=== PATIENT | male | born 1985 | race Caucasian/White ===

== ENCOUNTER 2021-02-16 03:11 | Emergency (ER) | payer OTHER, SELFPAY ==
[2021-02-16 03:17] VITALS: BP 128/85; PULSE 104; RESP 14; TEMP 36.6; O2SAT 98; BMI 23.5
--- NOTE | 2021-02-16 03:40 | PC.NURSE ---
pt falls asleep, good respiratory effort and rate of 12/min and spo2 93%. pt does not wake to voice or light touch. girlfriend at bedside has to shake his arm, pt wakes.
--- NOTE | 2021-02-16 04:12 | ED_ITS ---
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 Patient had not slept in the last 2 days. During a break patient went outside to smoke a cigarette and then slept. He was difficult to arouse. Bystander called EMS. Patient sent in to the ED for further evaluation. He has no complaints. No chest pain or shortness breath no nausea no vomiting. Patient denies using recreational drugs. Patient contacted his . She is present. Will take patient home. He has no complaints. He denies drinking any alcohol. Related Data Allergies Allergy/AdvReac Type Severity Reaction Status Date / Time No Known Allergies Allergy Unverified 05/07/20 18:33 Review of Systems Review of Systems: No fever no chills no chest pain or shortness of breath no complaint all systems reviewed otherwise negative [facility] Past Medical History Attestation statement: The following information was validated with the patient. Social History Social History Advance Directives: No Advance Directives Information Provided: No Physical Exam Vital Signs: Vital Signs: Last Vital Signs Temp 97.8 F 02/16/21 03:17 Pulse 104 H 02/16/21 03:17 Resp 14 02/16/21 03:17 BP 128/85 02/16/21 03:17 Pulse Ox 98 02/16/21 03:17 Body Mass Index 23.5 Appearance: Alert. Oriented X3. No acute distress. Eyes: Pupils equal, round and reactive to light. ENT: Pharynx normal. Neck: Normal inspection. Neck supple. No lymph nodes noted. No crepitus CVS: Normal heart rate and rhythm. Pulses normal. Normal S1 and S2 Respiratory: No respiratory distress. Breath sounds normal. No Wheezing. No rales Abdomen: Soft and nontender. No rigidity. No distention. good BS x4 Skin: Skin warm and dry. Normal skin color. Normal skin turgor. Extremities: No lower extremity edema. Neurovascular intact to all extremities. No Lacerations. No Rash Neuro: Oriented X 3. No motor deficit. No sensory deficit. Moving all extermities. No slurred speech Medical Decision Making MDM Narrative Medical decision making narrative: patient well-appearing no acute distress. Denies any recreational drug use. Denies any alcohol. Patient is now awake alert. Family to take patient home. Will have patient follow-up with Work connection. In stable condition. Discharge Plan Discharge Clinical Impression: Sleep deprivation Patient Disposition: Home, Self-Care Instructions: Fatigue (ED) Referrals: Leonard Wood MD [Physician] - 2 days
--- NOTE | 2021-02-16 04:28 | PC.NURSE ---
pt awake and alert, ambulatory with steady gait. girlfriend at bedside and will give him ride home.
== END 2021-02-16 04:29 | disposition home or self-care (01) ==
PROVIDERS: Emergency Provider Emergency Medicine Emergency Medical Services
DX: Z72.820 Sleep deprivation (principal); F17.210 Nicotine dependence, cigarettes, uncomplicated
CPT/HCPCS: 99282; 99283

== ENCOUNTER → 2021-02-18 10:27 | Outpatient (BNVA) | payer OTHER, SELFPAY | PROVIDERS: Visit Provider Physician Assistant Medical | DX: Z02.79 Encounter for issue of other medical certificate (principal); R53.83 Other fatigue | CPT/HCPCS: 99202 ==

== ENCOUNTER 2021-05-13 13:04 | Outpatient (REF) | payer OTHER, SELFPAY | END 2021-05-13 13:05 | disposition home or self-care (01) | LOC: HO.LAB 13:04 | PROVIDERS: PCP Internal Medicine; Visit Provider Internal Medicine | DX: Z20.822 Contact with and (suspected) exposure to COVID-19 (principal) | CPT/HCPCS: C9803; U0003; U0005 ==

== ENCOUNTER 2021-05-19 13:05 | Outpatient (REF) | payer OTHER, SELFPAY | END 2021-05-19 13:06 | disposition home or self-care (01) | LOC: HO.LAB 13:05 | PROVIDERS: Visit Provider Internal Medicine | DX: Z20.822 Contact with and (suspected) exposure to COVID-19 (principal) | CPT/HCPCS: U0003; U0005 ==

== ENCOUNTER 2021-05-31 10:34 | Outpatient (REF) | payer OTHER, SELFPAY | END 2021-05-31 10:35 | disposition home or self-care (01) | LOC: HO.LAB 10:34 | PROVIDERS: PCP Internal Medicine; Visit Provider Internal Medicine | DX: Z20.822 Contact with and (suspected) exposure to COVID-19 (principal) | CPT/HCPCS: C9803; U0003; U0005 ==

== ENCOUNTER 2021-07-29 14:11 | Outpatient (RCR) | payer OTHER, SELFPAY | END 2021-08-18 13:20 | disposition home or self-care (01) | LOC: HO.WCC 14:11 | PROVIDERS: PCP Internal Medicine; Visit Provider Surgery | DX: T81.31XA Disruption of external operation (surgical) wound, not elsewhere classified, initial encounter (principal); L97.519 Non-pressure chronic ulcer of other part of right foot with unspecified severity; W55.03XA Scratched by cat, initial encounter; F12.90 Cannabis use, unspecified, uncomplicated; L53.9 Erythematous condition, unspecified; Z79.2 Long term (current) use of antibiotics | CPT/HCPCS: 97597; 99213 ==

== ENCOUNTER 2021-09-16 14:18 | Outpatient (REF) | payer MEDICAID, SELFPAY ==
[2021-09-16 14:39] LABS: Binax Internal Control QC Valid; Binax Now Covid-19 Ag Negative (Negative)
== END 2021-09-16 14:19 | disposition home or self-care (01) ==
LOC: HO.LAB 14:18
PROVIDERS: Visit Provider Internal Medicine
DX: Z20.822 Contact with and (suspected) exposure to COVID-19 (principal)
CPT/HCPCS: C9803

== ENCOUNTER 2021-10-17 18:13 | Emergency (ER) | payer OTHER, MEDICAID, SELFPAY ==
[2021-10-17 18:55] VITALS: BP 117/73; PULSE 79; RESP 16; TEMP 37.1; O2SAT 99; BMI 28.1
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
== END 2021-10-17 20:08 | disposition home or self-care (01) ==
PROVIDERS: Emergency Provider Internal Medicine; PCP Internal Medicine
DX: S16.1XXA Strain of muscle, fascia and tendon at neck level, initial encounter (principal); M25.512 Pain in left shoulder; M54.2 Cervicalgia; V43.52XA Car driver injured in collision with other type car in traffic accident, initial encounter; Y93.9 Activity, unspecified; Y92.410 Unspecified street and highway as the place of occurrence of the external cause; Y99.9 Unspecified external cause status; Z79.899 Other long term (current) drug therapy
CPT/HCPCS: 99284

== ENCOUNTER 2022-02-28 20:30 | Emergency (ER) | payer MEDICAID, SELFPAY ==
--- NOTE | ~2022-02-28 | CT_ITS ---
EXAMINATION: CT ABDOMEN AND PELVIS WITHOUT CONTRAST CLINICAL INFORMATION: Right flank pain, question kidney stones COMPARISON: None TECHNIQUE: Multidetector volumetric imaging was performed from the superior aspect of the liver through the pubic symphysis. Sagittal and coronal reformatted images were obtained on the technologist's workstation. This CT examination was performed using dose optimization techniques as appropriate, variously including the following: *Automated exposure control *Adjustment of mA and/or kV according to patient size (this includes techniques or standardized protocols for targeted exams where dose is matched to indication/reason for exam; i.e. extremities or head) *Use of iterative reconstruction technique DLP: 602 mGy-cm FINDINGS: LUNG BASES: The visualized lung bases are unremarkable. LIVER, GALLBLADDER, AND BILIARY TREE: The liver is normal in size, shape, and attenuation. No focal hepatic lesion or biliary ductal dilatation is present. The gallbladder appears contracted and is not adequately evaluated. PANCREAS: Unremarkable. SPLEEN: Unremarkable. ADRENAL GLANDS: Unremarkable. KIDNEYS AND URETERS: The kidneys are normal in size, shape, and attenuation. No hydronephrosis, hydroureter, or calculi seen. No perinephric stranding. BLADDER: There is diffuse mural prominence which may be due to underdistention. GASTROINTESTINAL TRACT: No evidence of bowel obstruction or significant wall thickening. The appendix is unremarkable. No free fluid or free air is seen. ABDOMINAL WALL: No significant hernia is appreciated. LYMPH NODES: No lymphadenopathy is seen, though assessment is limited in the absence of intravenous contrast. VASCULAR: Grossly unremarkable on this noncontrast exam. PELVIC VISCERA: Unremarkable. OSSEOUS STRUCTURES: Endplate osteophytes are noted in the lower lumbar spine. CT/CT abdomen pelvis wo con IMPRESSION: No acute findings identified in the abdomen/pelvis. No hydronephrosis or obstructing calculus.
[2022-02-28 22:20] VITALS: BP 131/77; PULSE 91; RESP 18; TEMP 36.8; O2SAT 94; BMI 29.0
[2022-02-28 22:42] LABS: MANUAL DIFF FLAG NO
[2022-02-28 22:43] LABS: Basophils Absolute Auto 0.1 X10*3/uL (0.0-0.2); Basophils Percent Auto 0.8 % (0-2); Eosinophils Absolute Auto 0.9 X10*3/uL (0.0-0.4); Hematocrit 41.2 % (42.0-52.0); Hemoglobin 13.9 g/dl (14.0-18.0); Imm Gran Abs Auto 0.04 X10*3/uL (0.00-0.03); Imm Gran Pct Auto 0.3 % (0.0-0.4); Lymphocytes Absolute Auto 2.1 X10*3/uL (1.2-4.9); Lymphocytes Percent Auto 15.8 % (20-40); Mean Corpuscular HGB Conc 33.7 g/dl (31.0-36.0); Mean Corpuscular Hemoglobin 30.5 pg (27.0-33.0); Mean Corpuscular Volume 90.4 fL (80.0-98.0); Mean Platelet Volume 9.7 fL (9.4-12.4); Monocytes Absolute Auto 1.1 X10*3/uL (0.1-1.2); Monocytes Percent Auto 8.7 % (2-11); Neutrophils Absolute Auto 8.9 x10*3/uL (2.0-8.3); Neutrophils Percent Auto 67.4 % (45-73); Platelet Count 221 X10*3/uL (160-400); Red Blood Count 4.56 X10*6/uL (4.60-5.80); Red Cell Distribution Width 13.5 % (11.0-16.0); White Blood Count 13.1 X10*3/uL (4.8-10.8)
[2022-02-28 23:00] LABS: Alanine Aminotransferase 12 U/L (0-40); Albumin Level 4.2 g/dL (3.5-5.0); Alkaline Phosphatase 100 U/L (39-117); Anion Gap 9 (12-20); Aspartate Amino Transferase 17 U/L (5-37); Bilirubin Total 0.3 mg/dL (0.0-1.0); Blood Urea Nitrogen 21 mg/dL (9-16); Calcium 9.1 mg/dL (8.4-10.2); Carbon Dioxide 31 mmol/L (22-29); Chloride 102 mmol/L (96-108); Creatinine Clr Calc Pharmacy 121.8; Estimated Glomerular Filt Rate > 60; Glucose Random 96 mg/dL (60-115); Potassium 4.4 mmol/L (3.3-5.1); Sodium 138 mmol/L (135-145); Total Protein 6.9 g/dL (6.5-8.0)
[2022-03-01] VITALS: BP 132/70; PULSE 87; RESP 14; TEMP 36.8; O2SAT 95
[2022-03-01 00:41] LABS: C Reactive Protein 1.62 mg/dL (< or = 0.50); Lipase 15 U/L (8-78); Magnesium 1.8 mg/dL (1.6-2.6)
[2022-03-01] MEDS: Ketorolac Tromethamine 60 MG/2 ML VIAL IM (00:52)
[2022-03-01] MEDS: Ondansetron ODT 4 MG TAB.RAPDIS TRANSLINGU (00:52)
--- NOTE | 2022-03-01 00:56 | ED_ITS ---
HPI - Abdominal Pain General Chief Complaint: Abdominal Pain Stated Complaint: side/abd pain Time Seen by Provider: 03/01/22 00:22 Source: patient and family Mode of arrival: ambulatory Limitations: language barrier ( [place]an-speaking) History of Present Illness HPI narrative: 36-year-old male who denies any medical history or surgical history to the abdomen presenting to the ED with complaints of right flank pain since this morning with associated nausea and 1 episode of vomiting. Also reports possible constipation. Reports that he had small balls of poop yesterday. He reports that the right flank pain started this morning while he was eating eggs and he went to work and lifted something heavy and since then it has been worse. He denies any fevers, chills, dizziness, headaches, neck pain / stiffness, trouble swallowing breathing, chest pain or shortness of breath, dyspnea on exertion, orthopnea, palpitations, paresthesias, radiation of the abdominal pain, dysuria, hematuria, abnormal penile discharge, black or bloody stools, rashes, recent falls or trauma , recent antibiotic uses, others with similar symptoms, possible bad food exposure or any other symptoms complaints or concerns at this time. MD elicited complaint: abdominal pain and flank pain Pertinent past history: none Onset (ago): hour(s) ( since this morning) Pain Consistency: constant Location: R flank Severity: moderate Quality: stabbing, aching and sharp Radiation: none Migration to: no migration Exacerbating factors: nothing Relieving factors: nothing Associated symptoms: nausea, vomiting and constipation Related Data Previous Rx's Medication Instructions Recorded acetaminophen 500 mg tablet 500 mg PO Q6H PRN pain or fever 10/17/21 (Tylenol Extra Strength) #20 tabs cyclobenzaprine 5 mg tablet 5 mg PO Q8H PRN pain (scale score 10/17/21 7-10) 5 days #14 tabs lidocaine 5 % topical patch 1 patch topical DAILY PRN pain #30 10/17/21 (Lidoderm) ea naproxen 500 mg tablet 500 mg PO BID PRN pain 10 days #20 10/17/21 tabs cyclobenzaprine 10 mg tablet 10 mg PO Q8H PRN Muscle spasm #14 03/01/22 tabs naproxen 500 mg tablet 500 mg PO BID PRN pain #14 tabs 03/01/22 ondansetron 4 mg disintegrating 4 mg PO Q6H nausea and vomiting 03/01/22 tablet #14 tabs Allergies Allergy/AdvReac Type Severity Reaction Status Date / Time No Known Allergies Allergy Verified 02/28/22 22:20 Review of Systems Review of Systems Constitutional : No Fever, No Chills, No Night Sweats, No Fatigue, No Malaise Cardiovascular : No Chest Pain, No SOB Respiratory : No Cough, No Sputum, No Wheezing, No Dyspnea Gastrointestinal : + Nausea, + Vomiting, + abdominal Pain, + constipation, No Hematochezia, No Melena, No Diarrhea Genitourinary : No irregular bleeding, No Dysuria, No Urinary Frequency, No Hematuria,No Urinary Incontinence, No Urgency, No Flank Pain Musculoskeletal : No joint pain, No Myalgias, No Joint Swelling Skin : No Skin Lesions, No rash Neuro : No Weakness, No Numbness, No Paresthesias, No Loss of Consciousness, No Dizziness, No Headache Heme/Lymph: No Lymphadenopathy Endocrine : No Temperature Intolerance Yes all other systems are reviewed and are negative [facility] Past Medical History Attestation statement: The following information was validated with the patient. Source: old records reviewed, obtained from family and nursing notes reviewed Social History Social History Alcohol intake: never Patient Tobacco Use Status: Current everyday Tobacco user Use of substances other than those prescribed or required for medical reasons: No Advance Directives: No Physical Exam ED Vital Signs: Vital Signs - 24 hr 02/28/22 22:20 03/01/22 00:00 Temperature 98.2 F 98.2 F Pulse Rate 91 87 Respiratory Rate 18 14 Blood Pressure 131/77 132/70 Pulse Oximetry 94 95 Oxygen Delivery Method Room Air Room Air BMI result Body Mass Index 29.0 Vital signs have been reviewed and all within normal limits Appearance: Alert. Oriented X3. No acute distress. Head: Normal external exam. Normocephalic. Eyes: PERRLA. EOMI. Conjunctiva and sclera normal. Eyelids normal. ENT: Pharynx normal. Uvula midline. Moist mucous membranes. No trismus noted. No drooling noted. No muffled voice noted. Neck: Normal inspection. Neck supple. FROM. No adenopathy. No meningeal signs. CVS: Normal heart rate and rhythm. Heart sound normal. No murmurs noted. Pulses normal throughout. Respiratory: No respiratory distress. Painless inspiration. Breath sounds normal. No wheezes/rales/rhonchi noted. Chest nontender. No accessory muscle usage noted or decreased air movement noted. Abdomen: Soft and moderate tenderness to the right flank with guarding. Nondistended. No rigidity. Bowel sounds normal in all 4 quadrants. No distention noted. No organomegaly noted. No visible injury noted. No rebound tenderness. Negative Rovsing sign. Negative obturator's sign. Negative psoas sign. Negative King sign. Back: + Right sided CVA tenderness. No left sided CVAT noted. Full range of motion noted. Skin: Skin warm and dry. Normal skin color. Normal skin turgor. No rashes/lesions/lacerations noted. Extremities: Extremities exhibit normal range of motion. Extremities nontender. Neuro: Oriented X 3. No motor deficit. No sensory deficit. Reflexes normal. Normal steady gait. CN's II-XII intact bilaterally? Course Course Course Narrative: 20:45pm - 36-year-old male who denies any medical history or surgical history to the abdomen presenting to the ED with complaints of right flank pain since this morning with associated nausea and 1 episode of vomiting. Also reports possible constipation. Reports that he had small balls of poop yesterday. He reports that the right flank pain started this morning while he was eating eggs and he went to work and lifted something heavy and since then it has been worse. labs were obtained while the patient was in triage /waiting room in patient with an elevated white blood cell count of 13,000. Mild anemia. Carbon dioxide 31. Anion gap 9. BUN 21. CRP 1.64. Otherwise all other labs are within normal limits. Plan: Will obtain a UA and a CT scan abdomen pelvis without IV contrast provide 60 mg of IM Toradol and 4 mg of p.o. Zofran and re-evaluate. Reevaluation(s) Reevaluation #1: Labs reviewed patient with mildly leukocytosis at 13,000. Mild anemia. Carbon dioxide 31. Anion gap 9. BUN 21. CRP 1.62. Otherwise all other labs are within normal limits. UA within normal limits no evidence of UTI. CT scan abdomen pelvis revealed chronic changes no acute processes. Not consistent with appendicitis. Not consistent with kidney stones. Patient most likely muscular skeletal pain. Will DC home with symptomatic treatment instructions return if any new or worsening symptoms follow up with primary care provider. Patient with at bedside understand agree this plan. Time: 02:39 MDM - Abdominal Pain Medical Records Attestation: I reviewed the patient's medical records. Lab Data Attestation: I reviewed the patient's lab results. Result diagrams: 02/28/22 22:35 02/28/22 22:35 Labs: Lab Results 02/28/22 02/28/22 02/28/22 Range/Units 22:35 22:35 22:35 WBC 13.1 H (4.8-10.8) X10*3/uL RBC 4.56 L (4.60-5.80) X10*6/uL Hgb 13.9 L (14.0-18.0) g/dl Hct 41.2 L (42.0-52.0) % MCV 90.4 (80.0-98.0) fL MCH 30.5 (27.0-33.0) pg MCHC 33.7 (31.0-36.0) g/dl RDW 13.5 (11.0-16.0) % Plt Count 221 (160-400) X10*3/uL MPV 9.7 (9.4-12.4) fL Immature Gran % (Auto) 0.3 (0.0-0.4) % Neut % (Auto) 67.4 (45-73) % Lymph % (Auto) 15.8 L (20-40) % Rogers % (Auto) 8.7 (2-11) % Eos % (Auto) 7.0 H (0-4) % Baso % (Auto) 0.8 (0-2) % Lymph # (Auto) 2.1 (1.2-4.9) X10*3/uL Rogers # (Auto) 1.1 (0.1-1.2) X10*3/uL Eos # (Auto) 0.9 H (0.0-0.4) X10*3/uL Baso # (Auto) 0.1 (0.0-0.2) X10*3/uL Abs Immat Gran (auto) 0.04 H (0.00-0.03) X10*3/uL Absolute Neuts (auto) 8.9 H (2.0-8.3) x10*3/uL Absolute Nucleated RBC 0.000 (0.0-0.012) X10*3/uL Nucleated RBC % (auto) 0.0 (0.0-0.2) /100WBC ESR 6 (0-15) MM/HR Sodium 138 (135-145) mmol/L Potassium 4.4 (3.3-5.1) mmol/L Chloride 102 (96-108) mmol/L Carbon Dioxide 31 H (22-29) mmol/L Anion Gap 9 L (12-20) BUN 21 H (9-16) mg/dL Creatinine 0.86 (0.5-1.4) mg/dL Estim Creat Clear Calc 121.8 Estimated GFR > 60 Random Glucose 96 (60-115) mg/dL Calcium 9.1 (8.4-10.2) mg/dL Magnesium 1.8 (1.6-2.6) mg/dL Total Bilirubin 0.3 (0.0-1.0) mg/dL AST 17 (5-37) U/L ALT 12 (0-40) U/L Alkaline Phosphatase 100 (39-117) U/L C-Reactive Protein 1.62 H (< or = 0.50) mg/dL Total Protein 6.9 (6.5-8.0) g/dL Albumin 4.2 (3.5-5.0) g/dL Lipase 15 (8-78) U/L Urine Color Urine Appearance Urine pH (5.0-8.0) Ur Specific Fossil (1.005-1.025) Urine Protein (NEG-TRACE) MG/DL Urine Glucose (UA) (NEG) MG/DL Urine Ketones (NEG) MG/DL Urine Blood (NEG) Urine Nitrite (NEG) Ur Leukocyte Esterase (NEG) 03/01/22 Range/Units 01:18 WBC (4.8-10.8) X10*3/uL RBC (4.60-5.80) X10*6/uL Hgb (14.0-18.0) g/dl Hct (42.0-52.0) % MCV (80.0-98.0) fL MCH (27.0-33.0) pg MCHC (31.0-36.0) g/dl RDW (11.0-16.0) % Plt Count (160-400) X10*3/uL MPV (9.4-12.4) fL Immature Gran % (Auto) (0.0-0.4) % Neut % (Auto) (45-73) % Lymph % (Auto) (20-40) % Rogers % (Auto) (2-11) % Eos % (Auto) (0-4) % Baso % (Auto) (0-2) % Lymph # (Auto) (1.2-4.9) X10*3/uL Rogers # (Auto) (0.1-1.2) X10*3/uL Eos # (Auto) (0.0-0.4) X10*3/uL Baso # (Auto) (0.0-0.2) X10*3/uL Abs Immat Gran (auto) (0.00-0.03) X10*3/uL Absolute Neuts (auto) (2.0-8.3) x10*3/uL Absolute Nucleated RBC (0.0-0.012) X10*3/uL Nucleated RBC % (auto) (0.0-0.2) /100WBC ESR (0-15) MM/HR Sodium (135-145) mmol/L Potassium (3.3-5.1) mmol/L Chloride (96-108) mmol/L Carbon Dioxide (22-29) mmol/L Anion Gap (12-20) BUN (9-16) mg/dL Creatinine (0.5-1.4) mg/dL Estim Creat Clear Calc Estimated GFR Random Glucose (60-115) mg/dL Calcium (8.4-10.2) mg/dL Magnesium (1.6-2.6) mg/dL Total Bilirubin (0.0-1.0) mg/dL AST (5-37) U/L ALT (0-40) U/L Alkaline Phosphatase (39-117) U/L C-Reactive Protein (< or = 0.50) mg/dL Total Protein (6.5-8.0) g/dL Albumin (3.5-5.0) g/dL Lipase (8-78) U/L Urine Color YELLOW Urine Appearance CLEAR Urine pH 6.5 (5.0-8.0) Ur Specific Fossil 1.020 (1.005-1.025) Urine Protein NEG (NEG-TRACE) MG/DL Urine Glucose (UA) NEG (NEG) MG/DL Urine Ketones NEG (NEG) MG/DL Urine Blood NEG (NEG) Urine Nitrite NEG (NEG) Ur Leukocyte Esterase NEG (NEG) Imaging Data CT scan abdomen pelvis without IV contrast: Attestation: I personally reviewed and interpreted this imaging study as follows: Radiologist's impression: FINDINGS: LUNG BASES: The visualized lung bases are unremarkable.? LIVER, GALLBLADDER, AND BILIARY TREE: The liver is normal in size, shape, and attenuation. No focal hepatic lesion or biliary ductal dilatation is present. The gallbladder appears contracted and is not adequately evaluated.? PANCREAS: Unremarkable.? SPLEEN: Unremarkable.? ADRENAL GLANDS: Unremarkable.? KIDNEYS AND URETERS: The kidneys are normal in size, shape, and attenuation. No hydronephrosis, hydroureter, or calculi seen. No perinephric stranding. BLADDER: There is diffuse mural prominence which may be due to underdistention. GASTROINTESTINAL TRACT: No evidence of bowel obstruction or significant wall thickening. The appendix is unremarkable. No free fluid or free air is seen. ABDOMINAL WALL: No significant hernia is appreciated.? LYMPH NODES: No lymphadenopathy is seen, though assessment is limited in the absence of intravenous contrast. VASCULAR: Grossly unremarkable on this noncontrast exam. PELVIC VISCERA: Unremarkable.? OSSEOUS STRUCTURES: Endplate osteophytes are noted in the lower lumbar spine.? CT/CT abdomen pelvis wo con IMPRESSION: No acute findings identified in the abdomen/pelvis. No hydronephrosis or obstructing calculus. Discharge Plan Discharge Clinical Impression: Pain on movement of skeletal muscle, Acute abdominal pain in right flank, Nausea & vomiting Patient Disposition: Home, Self-Care Instructions: Musculoskeletal Pain (ED) Prescriptions: New naproxen 500 mg tablet 500 mg PO BID PRN (Reason: pain) Qty: 14 0RF cyclobenzaprine 10 mg tablet 10 mg PO Q8H PRN (Reason: Muscle spasm) Qty: 14 0RF ondansetron 4 mg tablet,disintegrating 4 mg PO Q6H Qty: 14 0RF No Action acetaminophen [Tylenol Extra Strength] 500 mg tablet 500 mg PO Q6H PRN (Reason: pain or fever) Qty: 20 0RF lidocaine [Lidoderm] 5 % adhesive patch,medicated 1 patch topical DAILY MDD remove after 12 hours PRN (Reason: pain) Qty: 30 0RF Rx Instructions: leave on most painful area for up to 12 hrs naproxen 500 mg tablet 500 mg PO BID PRN (Reason: pain) 10 Days Qty: 20 0RF cyclobenzaprine 5 mg tablet 5 mg PO Q8H PRN (Reason: pain (scale score 7-10)) 5 Days Qty: 14 0RF Referrals: Physician,Unknown J [Primary Care Provider] - 2 days (your pcp) Stand Alone Forms: Work/School Release Print Language: [place]an
[2022-03-01 01:03] LABS: Erythrocyte Sedimentation Rate 6 MM/HR (0-15)
[2022-03-01 01:26] LABS: Appearance Urine CLEAR; Color Urine YELLOW; Glucose Urine UA NEG (NEG); Leukocyte Esterase Urine NEG (NEG); Nitrite Urine NEG (NEG); PH 6.5 (5.0-8.0); Urine Blood NEG (NEG); Urine Ketones NEG (NEG); Urine Protein NEG (NEG-TRACE)
== END 2022-03-01 05:21 | disposition home or self-care (01) ==
PROVIDERS: Physician Assistant Medical; Emergency Provider Emergency Medicine Emergency Medical Services
DX: R10.9 Unspecified abdominal pain (principal); R11.2 Nausea with vomiting, unspecified; K59.00 Constipation, unspecified; F17.200 Nicotine dependence, unspecified, uncomplicated; Z79.899 Other long term (current) drug therapy; Z71.6 Tobacco abuse counseling
CPT/HCPCS: 36415; 74176; 80053; 81003; 83690; 83735; 85025; 85652; 86140; 96372; 99284; J1885

== ENCOUNTER 2022-05-23 18:06 | Emergency (ER) | payer MEDICAID, SELFPAY | END 2022-05-23 19:02 | disposition left against medical advice (07) | PROVIDERS: Emergency Provider Emergency Medicine; PCP Internal Medicine | DX: M79.89 Other specified soft tissue disorders (principal) ==

== ENCOUNTER 2022-10-28 15:03 | Emergency (ER) | payer MEDICAID, SELFPAY ==
--- NOTE | 2022-10-28 15:08 | ED.GENADULT ---
HPI - General Adult General Chief complaint: Overdose Stated complaint: Overdose per EMS Time Seen by Provider: 10/28/22 15:05 Source: EMS Mode of arrival: EMS Limitations: other (Overdose) History of Present Illness HPI narrative: 37-year-old male with no major medical problems presents after an accidental overdose on opioids. Patient was noted to be sleeping throughout the day in his room. His family came and noticed he was unresponsive with agonal respirations. Both EMS and police were contacted. Prior to EMS arrival, patient received 2 doses of intranasal Narcan with some response. Fire department also arrived giving a 3rd dose of intranasal Narcan with good response. Since then, patient has been somewhat combative, uncooperative. Vital signs prior to arrival appear to be mildly hypotensive, good oxygen saturation in no focal deficits. There is no evidence of trauma. Patient is not a good historian is unable to provide history at this time. Related Data Previous Rx's Medication Instructions Recorded acetaminophen 500 mg tablet 500 mg PO Q6H PRN pain or fever 10/17/21 (Tylenol Extra Strength) #20 tabs cyclobenzaprine 5 mg tablet 5 mg PO Q8H PRN pain (scale score 10/17/21 7-10) 5 days #14 tabs lidocaine 5 % topical patch 1 patch topical DAILY PRN pain #30 10/17/21 (Lidoderm) ea naproxen 500 mg tablet 500 mg PO BID PRN pain 10 days #20 10/17/21 tabs cyclobenzaprine 10 mg tablet 10 mg PO Q8H PRN Muscle spasm #14 03/01/22 tabs naproxen 500 mg tablet 500 mg PO BID PRN pain #14 tabs 03/01/22 ondansetron 4 mg disintegrating 4 mg PO Q6H nausea and vomiting 03/01/22 tablet #14 tabs Allergies Allergy/AdvReac Type Severity Reaction Status Date / Time No Known Allergies Allergy Verified 02/28/22 22:20 [facility] Social History Social History Alcohol intake: never Patient Tobacco Use Status: Current everyday Tobacco user Physical Exam ED Vital Signs: Vital Signs - 24 hr 10/28/22 15:22 Temperature 97.3 F Pulse Rate 116 H Respiratory Rate 33 H Pulse Oximetry 96 Oxygen Delivery Method Room Air BMI result Body Mass Index 29.7 GEN: Well developed, no acute distress, alert HEENT: Normocephalic, atraumatic, normal external ears, nose appears normal, no oropharyngeal edema or exudates Eyes: Normal to appearance Neck: Supple, no lymphadenopathy Respiratory: Talks in complete sentences, no respiratory distress, clear to auscultation bilaterally Cardiovascular: Regular rate and rhythm, no murmurs rubs or gallops Abdomen: Soft, nontender, nondistended, no guarding, no rebound Back: No CVA tenderness Extremities: No clubbing cyanosis or edema Neurologic: No focal neurologic deficits, cranial nerves 2-12 intact, strength is 5/5 bilaterally, gait normal Skin: No rash Psych: No SI HI Course Course Course Narrative: 37-year-old male presents with accidental overdose. There is no SI or HI. Patient responded to Narcan. Currently somnolent but arousable with verbal command. He has no focal deficits. There is no evidence trauma. Will observe patient for at least 2 hours pending an appropriate improvement in his condition. Reevaluation(s) Reevaluation #1: Patient has stable yet somnolent. Patient will be observed for a minimum of 2 hours. The oncoming doctor will assume care at this time. Disposition pending clinical sobriety. Time: 16:47 Medications Administered Discontinued Medications Generic Name Dose Route Start Last Admin Trade Name Paresh PRN Reason Stop Dose Admin Naloxone HCl 4 mg 10/28/22 15:14 10/28/22 15:49 Naloxone Hcl Nasal Take Home 4 Mg [place] NOSTRILALT 10/28/22 15:15 4 mg ONCE ONE Administration Medical Decision Making Medical Decision Making [facility] Narrative: 37-year-old male abdominal speaking presents with an accidental overdose on opioids. Patient denies SI or HI. Patient will be observed for improvement in his mental and medical condition. Differential Diagnosis Differential Diagnoses: The differential diagnosis associated with the presentation includes (Accidental overdose, depression, anxiety, adjustment reaction, polysubstance abuse) Admission/Observation Consideration of admission/observation: Escalation of care including admission/observation considered Prescription Management I considered prescription management with: Other (Anxiety medications) Social Determinants Patient?s care significantly limited by Social Determinants of Health including: Other Social Determinant of Health (Substance abuse) Discharge Plan Discharge Clinical Impression: Accidental overdose, Active substance abuse Patient Disposition: Still a Patient Instructions: Polysubstance Abuse (ED), Adult Overdose (ED) Prescriptions: No Action acetaminophen [Tylenol Extra Strength] 500 mg tablet 500 mg PO Q6H PRN (Reason: pain or fever) Qty: 20 0RF lidocaine [Lidoderm] 5 % adhesive patch,medicated 1 patch topical DAILY MDD remove after 12 hours PRN (Reason: pain) Qty: 30 0RF Rx Instructions: leave on most painful area for up to 12 hrs naproxen 500 mg tablet 500 mg PO BID PRN (Reason: pain) 10 Days Qty: 20 0RF cyclobenzaprine 5 mg tablet 5 mg PO Q8H PRN (Reason: pain (scale score 7-10)) 5 Days Qty: 14 0RF naproxen 500 mg tablet 500 mg PO BID PRN (Reason: pain) Qty: 14 0RF cyclobenzaprine 10 mg tablet 10 mg PO Q8H PRN (Reason: Muscle spasm) Qty: 14 0RF ondansetron 4 mg tablet,disintegrating 4 mg PO Q6H Qty: 14 0RF Referrals: [facility] [Provider Group]
[2022-10-28 15:22] VITALS: PULSE 116; RESP 33; TEMP 36.3; O2SAT 96; BMI 29.7
[2022-10-28] MEDS: Naloxone HCl Nasal TAKE HOME 4 MG SPRAY NOSTRILALT (15:49)
--- NOTE | 2022-10-28 18:30 | PC.NURSE ---
Patient up and awake. Girlfriend in at bedside, patient eating.
[2022-10-28 18:33] VITALS: BP 97/52; PULSE 94; RESP 13; TEMP 37; O2SAT 97
[2022-10-28 20:04] VITALS: BP 110/66; PULSE 84; RESP 12; TEMP 37.2; O2SAT 96
--- NOTE | 2022-10-28 20:45 | MHC.RECOVSUP ---
? Reason for consult:OPI o? Current location:ED06? o? Identified substance use concern:? -? Overdose -? Support ? Intervention: o? Community resources provided o? Harm reduction discussion ? Plan: ? Additional information:RC met with pt and discussed ATS, pt declined any services, RC provided pt with recovery resources to [facility] and [facility].
== END 2022-10-28 20:44 | disposition home or self-care (01) ==
PROVIDERS: Emergency Provider Emergency Medicine; PCP Internal Medicine
DX: T40.2X1A Poisoning by other opioids, accidental (unintentional), initial encounter (principal); Y92.9 Unspecified place or not applicable; F19.10 Other psychoactive substance abuse, uncomplicated
CPT/HCPCS: 99284

== ENCOUNTER 2023-02-20 14:21 | Outpatient (REF) | payer MEDICAID, SELFPAY | END 2023-02-20 14:22 | disposition home or self-care (01) | LOC: HO.HHCX 14:21 | PROVIDERS: Visit Provider Registered Nurse | DX: M79.671 Pain in right foot (principal) | CPT/HCPCS: 73630 ==

== ENCOUNTER 2023-04-12 12:35 | Outpatient (REF) | payer MEDICAID, SELFPAY ==
[2023-04-12 13:00] LABS: MANUAL DIFF FLAG NO
[2023-04-12 13:09] LABS: Basophils Absolute Auto 0.1 X10*3/uL (0.0-0.2); Basophils Percent Auto 0.8 % (0-2); Eosinophils Absolute Auto 0.6 X10*3/uL (0.0-0.4); Eosinophils Percent Auto 8.4 % (0-4); Hematocrit 42.5 % (42.0-52.0); Hemoglobin 14.5 g/dl (14.0-18.0); Imm Gran Abs Auto 0.02 X10*3/uL (0.00-0.03); Imm Gran Pct Auto 0.3 % (0.0-0.4); Lymphocytes Absolute Auto 1.8 X10*3/uL (1.2-4.9); Mean Corpuscular HGB Conc 34.1 g/dl (31.0-36.0); Mean Corpuscular Hemoglobin 31.6 pg (27.0-33.0); Mean Corpuscular Volume 92.6 fL (80.0-98.0); Mean Platelet Volume 9.7 fL (9.4-12.4); Monocytes Absolute Auto 0.7 X10*3/uL (0.1-1.2); Monocytes Percent Auto 8.6 % (2-11); Neutrophils Absolute Auto 4.5 x10*3/uL (2.0-8.3); Neutrophils Percent Auto 58.9 % (45-73); Platelet Count 207 X10*3/uL (160-400); Red Blood Count 4.59 X10*6/uL (4.60-5.80); Red Cell Distribution Width 12.9 % (11.0-16.0); White Blood Count 7.7 X10*3/uL (4.8-10.8)
[2023-04-12 13:19] LABS: D Dimer High Sensitivity < 150 NG/ML
[2023-04-12 13:31] LABS: Anion Gap 12 (12-20); Blood Urea Nitrogen 14 mg/dL (9-16); Calcium 9.2 mg/dL (8.4-10.2); Carbon Dioxide 28 mmol/L (22-29); Chloride 105 mmol/L (96-108); Estimated Glomerular Filt Rate > 60; Glucose Random 127 mg/dL (60-115); Potassium 4.9 mmol/L (3.3-5.1); Sodium 140 mmol/L (135-145)
[2023-04-12 13:40] LABS: TSH reflex Free T4 0.62 uIU/mL (0.32-4.0)
== END 2023-04-12 12:36 | disposition home or self-care (01) ==
LOC: HO.LAB 12:35
PROVIDERS: PCP Internal Medicine; Visit Provider Internal Medicine
DX: R00.2 Palpitations (principal); R94.31 Abnormal electrocardiogram [ECG] [EKG]
CPT/HCPCS: 36415; 80048; 84443; 85025; 85379

== ENCOUNTER 2023-04-20 16:44 | Outpatient (REF) | payer MEDICAID, SELFPAY ==
[2023-04-25 21:37] LABS: Lyme Abs Screen <0.90 index
== END 2023-04-20 16:45 | disposition home or self-care (01) ==
LOC: HO.HHCL 16:44
PROVIDERS: Visit Provider Emergency Medicine
DX: M25.531 Pain in right wrist (principal); M79.641 Pain in right hand
CPT/HCPCS: 36415; 84550; 86617; 86618

== ENCOUNTER 2023-06-29 09:23 | Outpatient (REF) | payer MEDICAID, SELFPAY ==
--- NOTE | 2023-06-29 09:25 | EMG_ITS ---
Right median and ulnar motor and sensory studies were performed. Right radial sensory study was performed. Right median and lateral antecubital brachial sensory studies were performed and paraspinal muscles were tested with a needle. IMPRESSION: Mild to moderate right median neuropathy across carpal tunnel. MD JUNIE Dominguez/RENATA / [phone]
== END 2023-06-29 09:24 | disposition home or self-care (01) ==
LOC: HO.NEURO 09:23
PROVIDERS: PCP Internal Medicine; Visit Provider Emergency Medicine
DX: M25.531 Pain in right wrist (principal); M79.641 Pain in right hand
CPT/HCPCS: 95886; 95910

== ENCOUNTER 2023-07-05 17:36 | Outpatient (REF) | payer MEDICAID, SELFPAY ==
[2023-07-10 08:48] LABS: Alphahydroxymidazolam,GCMS Ur NEGATIVE; Alphahydroxytriazolam, GCMS Ur NEGATIVE; Aminoclonazepam, GCMS Urine NEGATIVE; Flurazepam Metabolite,GCMS Ur NEGATIVE; Temazepam, GCMS Urine NEGATIVE
[2023-07-10 08:49] LABS: Lorazepam GCMS Urine NEGATIVE; Nordiazepam, GCMS Urine NEGATIVE; Oxazepam, GCMS Urine NEGATIVE
== END 2023-07-05 17:37 | disposition home or self-care (01) ==
LOC: HO.HHCLNP 17:36
PROVIDERS: Visit Provider Family Medicine
DX: F11.20 Opioid dependence, uncomplicated (principal)
CPT/HCPCS: 80346

== ENCOUNTER 2023-07-11 11:03 | Outpatient (AMB) | payer MEDICAID, SELFPAY ==
[2023-07-11 11:13] VITALS: BMI 29.8
--- NOTE | 2023-07-11 11:13 | A.OFFVIS_ITS ---
Intake Vital Signs 07/11/23 11:13 Height 5 ft 7 in Weight 190 lb BMI 29.8 Handedness Right Intake Visit Reasons: New Pt - Rt hand/wrist pain Intake Note: is a 37 year old right hand dominant male who presents today as a new patient for a evaluation of his right wrist pain. Patient reports having pain for many years with no treatment. Having off and on numbness and tingling on the thumb, pointer finger and middle finger per patient. Patient reports when he is reaching for something he gets a tingling sensation on his volar aspect of the wrist. Allergies No Known Allergies Allergy (Verified 07/11/23 11:16) HPI New Pt - Rt hand/wrist pain HPI Details 37-year-old right hand dominant male, wh o is Yoruba speaking, presents in the office today for an evaluation of right hand/wrist pain. The patient reports having pain for many years with no treatment. He confirms intermittent numbness and tingling on the thumb slightly, pointer finger, and middle finger along with the right wrist. He reports when he is reaching for something he gets a tingling sensation on his volar aspect of the wrist when he is reaching for an object. 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 [facility] Alcohol intake: never Patient Tobacco Use Status: Current everyday Tobacco user Review of Systems Const All systems reviewed & are unremarkable except as noted in HPI and below Physical Exam Vital Signs: BMI result Body Mass Index 29.8 Const General: cooperative, healthy appearing and no acute distress Resp Effort & Inspection: normal respiratory effort and able to speak in complete sentences Cardio Rate: regular rate Peripheral pulses: Peripheral pulses 2+ throughout GI Palpation (GI): Soft to palpation Skin Lesions: no lesions Rashes: no rashes Extrem Other: Right hand: Normal to inspection. No ecchymosis, erythema, or edema. Able to perform full finger flexion, extension, abduction, adduction, finger cross, okay sign, and thumbs up without deficit. Able to make a closed fist. Positive Phalen?s sign. Numbness and tingling in the thumb, index, and middle digits. Capillary refill is brisk. Radial pulse intact. Assessment & Plan Assessment & Plan (1) Right carpal tunnel syndrome: Code(s): G56.01 - Carpal tunnel syndrome, right upper limb Plan Mr. Vinny Baldwin is a 37-year-old right hand dominant male, who is Yoruba speaking, presents in the office today for an evaluation of right hand/wrist pain. The patient reports having pain for many years with no treatment. He confirms intermittent numbness and tingling on the thumb slightly, pointer finger, and middle finger along with the right wrist. He reports when he is reaching for something he gets a tingling sensation on his volar aspect of the wrist when he is reaching for an object. 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 I discussed the role of a carpal tunnel release for the right upper extremity and then occupational therapy after the procedure. He would like to have carpal tunnel release in 08/2023. He would like to meet Dr. Cruz. Follow up will be with Dr. Cruz for his preoperative appointment, or sooner if needed. X-rays of the right hand which were obtained while in the office today and were reviewed by me, Mercy Jc PA-C, revealed no acute fracture or dislocation. 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 Orders: Orders XR hand RT min 3V Today M79.643 - Pain in unspecified hand Patient Instructions: Scribed for Mercy Jc PA-C by Lary Ceja medical territory manager, on 07/11/2023 at 11:05 am, EST. Coding Level of Care Code New Pt Level 4 (91761) Diagnoses Right carpal tunnel syndrome G56.01
== END 2023-07-11 11:42 | disposition home or self-care (01) ==
PROVIDERS: PCP Internal Medicine; Visit Provider Physician Assistant
DX: G56.01 Carpal tunnel syndrome, right upper limb (principal)
CPT/HCPCS: 99204

== ENCOUNTER 2023-07-11 12:04 | Outpatient (REF) | payer MEDICAID, SELFPAY ==
--- NOTE | ~2023-07-11 | XR_ITS ---
EXAMINATION: XR HAND, RIGHT CLINICAL INFORMATION: Pain. COMPARISON: None available. TECHNIQUE: PA, lateral, and oblique views of the right hand. FINDINGS: Bony alignment and mineralization are normal. There is a neutral ulnar variance. There is mild to moderate osteoarthritic change of the second through fifth distal interphalangeal joints. No fracture or dislocation is seen. There is no abnormal bone erosion. The proximal and distal carpal rows are intact. No focal soft tissue swelling, gas or foreign body is seen. XR/XR hand RT min 3V IMPRESSION: There is mild to moderate osteoarthritic change of the second through fifth distal abdominal joints. No fracture or dislocation is seen. There is no abnormal bone erosion.
== END 2023-07-11 12:05 | disposition home or self-care (01) ==
LOC: HO.HOSX 12:04
PROVIDERS: Visit Provider Physician Assistant
DX: G56.01 Carpal tunnel syndrome, right upper limb (principal)
CPT/HCPCS: 73130; 99212

== ENCOUNTER 2023-10-24 10:55 | Outpatient (AMB) | payer MEDICAID, SELFPAY ==
[2023-10-24 10:58] VITALS: BMI 29.8
--- NOTE | 2023-10-24 10:58 | A.OFFVIS_ITS ---
Intake Vital Signs 10/24/23 10:58 Height 5 ft 7 in Weight 190 lb BMI 29.8 Intake Visit Reasons: O/V RT hand CTS / discuss sx Intake Note: 38 yr old - hand dominant hand male, presents today to discuss surgery for his right hand CTS. Last seen with Consuelo Madrid. Allergies No Known Allergies Allergy (Verified 10/24/23 11:17) HPI O/V RT hand CTS / discuss sx HPI Details is a 38 year old right hand dominant Omani speaking man who presents for a NCS review of his right hand numbness. He complains of several years of numbness in the thumb, index, and middle fingers of his right hand. He says his numbness is constant at this time. He denies any small finger numbness. 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 He says his job does have light duty available for him to do if he has surgery. 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 Review of Systems Const All systems reviewed & are unremarkable except as noted in HPI and below Physical Exam Vital Signs: BMI result Body Mass Index 29.8 Const General: cooperative, healthy appearing and no acute distress Orientation/consciousness: patient oriented x3 HEENT Head: Yes normocephalic and Yes atraumatic Eyes EOM: EOMs intact bilaterally Resp Effort & Inspection: normal respiratory effort and able to speak in complete sentences Cardio Jugular venous distension: no JVD Skin General skin exam: turgor normal Rashes: no rashes Neuro General: patient oriented x3 Extrem Other: Evaluation of Right Upper Extremity: The patient is alert, oriented, and in no acute distress Neuro: Dense numbness in the median nerve distribution, worst in the middle finger. Normal sensation in the ulnar nerve distribution No thenar or intrinsic wasting Good APB muscle belly firing and good finger cross Vascular: Cap refill brisk ROM: He can make a fist and extend all his digits Skin: No lacerations or abrasions. General: No Ecchymosis. No Erythema or evidence of infection. 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 Ryley Gore MD 06/29/2023 Psych Appearance: grossly normal Affect: normal affect Attitude: cooperative Assessment & Plan Assessment & Plan (1) Right carpal tunnel syndrome: Code(s): G56.01 - Carpal tunnel syndrome, right upper limb Plan Assessment & Plan: 1. Right carpal tunnel syndrome, mild-moderate With dense numbness I educated him about this condition I discussed operative and non-operative treatment options The patient would like to proceed with surgery The risks and benefits of operative treatment were discussed with the patient and the patient wishes to proceed with surgery. These risks include, but are not limited to risk of damage to blood vessels, nerves, tendons, infection, recurrence, incomplete relief of preoperative symptoms, persistent pain, pos sible need for further surgery and the risks associated with regional blocks and anesthesia. The plan is to take the patient to the operating room sometime in the next few weeks for the following procedures: 1. Right carpal tunnel release, under local All of the preoperative paperwork including the consent was reviewed today. All the patient's questions were answered. The patient understands that they will be contacted by our outpatient scheduler soon to schedule this procedure He denies Diabetes, blood thinners, asthma, heart, lung, kidney issues Scribed for Yakelin Cruz MD by Ray Ventura, medical intern, on 10/24/23 at 11:25 AM, EST. Coding Level of Care Code Est Pt Level 4 (49947) Diagnoses Right carpal tunnel syndrome G56.01
== END 2023-10-24 11:30 | disposition home or self-care (01) ==
PROVIDERS: PCP Internal Medicine; Referring Provider Internal Medicine; Visit Provider Orthopaedic Surgery
DX: G56.01 Carpal tunnel syndrome, right upper limb (principal)
CPT/HCPCS: 99214

== ENCOUNTER → 2023-10-24 10:55 | Outpatient (BNVA) | payer MEDICAID, SELFPAY | PROVIDERS: PCP Internal Medicine; Visit Provider Orthopaedic Surgery | DX: G56.01 Carpal tunnel syndrome, right upper limb (principal) | CPT/HCPCS: 99212 ==

== ENCOUNTER 2023-12-19 14:31 | Outpatient (AMB) | payer MEDICAID, SELFPAY ==
[2023-12-19 14:35] VITALS: BMI 29.8
--- NOTE | 2023-12-19 14:35 | A.OFFVIS_ITS ---
Vital Signs 12/19/23 14:35 Height 5 ft 7 in Weight 190 lb BMI 29.8 Intake Visit Reasons: Pre-Rt CTR 12/25/23 Intake Note: 38 yr old for her Pre-op visit for her right CTR 12/25/23. Consent signed and all questions have been answered. Allergies No Known Allergies Allergy (Verified 12/19/23 14:45) HPI HPI Pre-Rt CTR 12/25/23: Details: is a 38 year old right hand dominant Maldivian speaking man who returns to discuss his right carpal tunnel syndrome He complains of several years of numbness in the thumb, index, and middle fingers of his right hand. He says his numbness is constant at this time. He denies any small finger numbness. He complains of pain in the volar aspect of the distal forearm, extending into his fingers, as well as pain in the back of his hand. 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 He says his job does have light duty available for him to do if he has surgery. 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 Ryley Gore MD 06/29/2023 Psych Appearance: grossly normal Affect: normal affect Attitude: cooperative Assessment & Plan Assessment & Plan (1) Right carpal tunnel syndrome: Code(s): G56.01 - Carpal tunnel syndrome, right upper limb Category: Medical Plan Assessment & Plan: 1. Right carpal tunnel syndrome, mild-moderate With dense numbness I educated him about this condition I discussed operative and non-operative treatment options The patient would like to proceed with surgery He complains of pain in the volar aspect of the distal forearm, extending into his fingers. I explained this may possibly improve with surgery. However the pain in the back of his hand is not likely to improve. The risks and benefits of operative treatment were discussed with the patient and the patient wishes to proceed with surgery. These risks include, but are not limited to risk of damage to blood vessels, nerves, tendons, infection, recurrence, incomplete relief of preoperative symptoms, persistent pain, possible need for further surgery and the risks associated with regional blocks and anesthesia. The plan is to take the patient to the operating room sometime on 12/25/23 for the following procedures: 1. Right carpal tunnel release, under local All of the preoperative paperwork including the consent was reviewed today. All the patient's questions were answered. 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 Scribe Plan - Not visible on output: Scribed for Yakelin Cruz MD by Ray Ventura electromedical equipment repairer, on [ ] at [ ], EST. Coding Level of Care Code Est Pt Level 4 (88756) Diagnoses Right carpal tunnel syndrome G56.01
== END 2023-12-19 14:52 | disposition home or self-care (01) ==
PROVIDERS: PCP Internal Medicine; Visit Provider Orthopaedic Surgery
DX: G56.01 Carpal tunnel syndrome, right upper limb (principal)
CPT/HCPCS: 99214

== ENCOUNTER → 2023-12-19 14:31 | Outpatient (BNVA) | payer MEDICAID, SELFPAY | PROVIDERS: PCP Internal Medicine; Visit Provider Orthopaedic Surgery | DX: G56.01 Carpal tunnel syndrome, right upper limb (principal) | CPT/HCPCS: 99212 ==

== ENCOUNTER 2023-12-25 09:52 | Day surgery (SDC) | payer MEDICAID, SELFPAY ==
--- NOTE | 2023-12-25 10:02 | MHC.SHP ---
Pre-Procedural Eval Section A - 24 Hr Update-Section A only Date of Service: 12/25/23 The patient is an INPATIENT: No Changes since office visit: No Cold of Flu in the past 2 weeks, No New Medical Problems, No Changes in Medication and No Patient answered all questions The patient has been examined within 24 hours of the surgical procedure. The History & Physical has been completed within 30 days and I have reviewed it.: Yes Section B - Complete if H&P > 30 days Chief Complaint: Carpal tunnel syndrome, right upper limb Allergies: Allergies Allergy/AdvReac Type Severity Reaction Status Date / Time No Known Allergies Allergy Verified 12/19/23 14:45 Exam Exam Comment: Right carpal tunnel syndrome Plan Diagnosis/Plan: Unchanged I have reviewed the history and physical and performed a pertinent physical examination on my patient. No changes have occurred unless specified. Time Spent With Patient Time: Total time managing care of this patient today ____ minutes.
--- NOTE | 2023-12-25 10:02 | W.PM.OPN ---
Operative Note Operative Note Date of Service: 12/25/23 Narrative: Preop diagnosis: 1. Right Carpal tunnel syndrome Postop diagnosis: same Procedure: 1. Right Carpal tunnel release Surgeon: Yakelin Cruz MD Anesthesia: local block using 1% lidocaine with epinephrine Findings: Thickened transverse carpal ligament. EBL: Less than 5 mL Specimens: None Complications: None Disposition: Brought to recovery room in stable condition Plan: Follow-up for 10-14 days for wound check and suture removal Indications: The patient is 38 years old, with right carpal tunnel syndrome that has been unresponsive to nonoperative management. The risks and benefits of operative treatment including but not limited to risk of damage to blood vessels, nerves, tendons, infection, persistent pain, persistent symptoms, or possible need for additional surgery were discussed with the patient and the patient wishes to proceed with surgery. Procedure: Once consent was obtained a local block was performed using a combination of 1% lidocaine with epinephrine. The patient was then brought back to the operating suite and placed on the operative table in supine position. The right upper extremity was prepped and draped in a standard surgical fashion. Once assured that we had a good block, a 2.0 cm longitudinal incision was made centered over the carpal tunnel. The incision was made through the skin to the subcutaneous tissues using a #15 blade. Dissection was made down to the level of the transverse carpal ligament with care being taken to protect the palmar cutaneous nerve. Once the transverse carpal ligament was clearly visualized, a longitudinal incision was made in the transverse carpal ligament 1st using a #15 blade, then using tenotomy scissors under direct visualization. Care was taken to look for and protect the motor branch of the median nerve when seen in this area. Once satisfied with our carpal tunnel release the wound was copiously irrigated with normal saline and hemostasis was obtained with a brief period of local pressure. The skin edges were reapproximated with some 5.0 nylon suture material and a sterile dressing was applied. The patient appears to have tolerated the procedure well and with no complications. All digits were well vascularized at the conclusion of the case.
[2023-12-25 10:14] VITALS: BMI 34.1
[2023-12-25 11:57] VITALS: BP 122/81; PULSE 73; RESP 18; TEMP 36.7; O2SAT 99
[2023-12-25 14:26] VITALS: BP 129/87; PULSE 63; RESP 16; O2SAT 98
== END 2023-12-25 14:28 | disposition home or self-care (01) ==
PROVIDERS: PCP Internal Medicine; Visit Provider Orthopaedic Surgery
PROC: (CPT 64721; principal; 2023-12-25 11:20)
DX: G56.01 Carpal tunnel syndrome, right upper limb (principal); R20.0 Anesthesia of skin; F17.210 Nicotine dependence, cigarettes, uncomplicated; Z79.891 Long term (current) use of opiate analgesic
CPT/HCPCS: 64721; J0171

== ENCOUNTER → 2023-12-25 09:52 | Outpatient (BNV) | payer MEDICAID, SELFPAY | PROVIDERS: PCP Internal Medicine; Visit Provider Orthopaedic Surgery | DX: G56.01 Carpal tunnel syndrome, right upper limb (principal) | CPT/HCPCS: 64721 ==

== ENCOUNTER 2024-01-09 14:22 | Outpatient (AMB) | payer MEDICAID, SELFPAY ==
[2024-01-09 14:28] VITALS: BMI 34.1
--- NOTE | 2024-01-09 14:28 | A.OFFVIS_ITS ---
Vital Signs 01/09/24 14:28 Height 5 ft 7 in Weight 218 lb BMI 34.1 Intake Visit Reasons: PO-Rt CTR 12/25/23 Intake Note: 38 yr old male presents today for his PO visit for his right CTR 12/25/23. States symptoms have resolved and is doing very well. Sutures removed and steri strips applied. Patient would like to have an EMG of his left hand. States he has mild numbness and tingling but is not ready for surgery at this moment. Allergies No Known Allergies Allergy (Verified 12/19/23 14:45) HPI HPI PO-Rt CTR 12/25/23: Details: is a 38 year old right hand dominant [place] speaking man who returns S/P right carpal tunnel release, DOS: 12/25/23 He says he is doing well and his sensation is improved and now normal in his right hand. He says he has some mild numbness in his left hand. He would like to have a nerve study done on his left hand. He complains of pain in the volar aspect of the distal forearm, extending into his fingers, as well as pain in the back of his hand. 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 He says his job does have light duty available for him to do if he has surgery. 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 Sutures removed and Steri-Strips applied He can make a fist and extend all his digits Sensation is improved and now normal in the median nerve distribution Cap refill is brisk Psych Appearance: grossly normal Affect: normal affect Attitude: cooperative Assessment & Plan Assessment & Plan (1) Right carpal tunnel syndrome: Code(s): G56.01 - Carpal tunnel syndrome, right upper limb Category: Medical (2) Numbness and tingling in left hand: Code(s): R20.0 - Anesthesia of skin; R20.2 - Paresthesia of skin Category: Medical Plan Assessment & Plan: 1. 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 He was given a note for work to return on 01/22/24, without restriction 2. Left hand numbness Symptoms intermittent, but daily I ordered a NCS to assess for peripheral nerve compression He will follow up when completed for review. He says he would like to wait a few months before discussing surgery. Scribed for Yakelin Cruz MD by Ray Ventura medical laboratory technologist, on 01/09/24 at 2:40 PM, EST. Scribe Plan - Not visible on output: Scribed for Yakelin Cruz MD by Ray Ventura medical laboratory technologist, on [ ] at [ ], EST. Coding Level of Care Code Global (34616) Diagnoses Right carpal tunnel syndrome G56.01 Numbness and tingling in left hand R20.0; R20.2
== END 2024-01-09 15:10 | disposition home or self-care (01) ==
PROVIDERS: PCP Internal Medicine; Visit Provider Orthopaedic Surgery
DX: G56.01 Carpal tunnel syndrome, right upper limb (principal); R20.0 Anesthesia of skin; R20.2 Paresthesia of skin
CPT/HCPCS: 99024

== ENCOUNTER → 2024-01-09 14:22 | Outpatient (BNVA) | payer MEDICAID, SELFPAY | PROVIDERS: PCP Internal Medicine; Visit Provider Orthopaedic Surgery | DX: Z47.89 Encounter for other orthopedic aftercare (principal); R20.0 Anesthesia of skin; R20.2 Paresthesia of skin; Z98.890 Other specified postprocedural states | CPT/HCPCS: 99212 ==